=== PATIENT | female | born 1965 | race Caucasian/White ===

== ENCOUNTER 2021-03-29 08:02 | Day surgery (SDC) | payer OTHER ==
[2021-03-29] MEDS ORDERED: Ringers Lactate 1,000 ML IV ONE ×2 (08:18→08:46)
[2021-03-29] MEDS ORDERED: CEFAZOLIN/NS 1gm 1 GM/50 ML BAG ONE (08:18)
[2021-03-29] MEDS ORDERED: SCOPOLAMINE HYDROBROMIDE PATCH TD ONE ×2 (08:18→08:35)
[2021-03-29 08:20] LABS: Urine Appearance TURBID (Clear); Urine Bilirubin NEGATIVE (Negative); Urine Blood NEGATIVE (Negative); Urine Color YELLOW (Yellow); Urine Glucose NEGATIVE (Negative); Urine Microscopic Reflex ORDER UMIC; Urine Protein NEGATIVE (Negative); Urine Specific Gravity 1.015 (1.005-1.030); Urine Urobilinogen 0.2 mg/dL (0.2-1.0)
[2021-03-29 08:20] LABS: Absolute Lymphocytes (CBC) 2.2 K/uL (0.7-4.9); Hematocrit 40.6 % (36.0-45.0); Lymphocytes % 30.6 % (15.3-44.8); MPV 6.9 fL (7.6-11.3); RBC Red Blood Cell Count 4.66 M/uL (3.86-4.86)
[2021-03-29 08:26] LABS: Urine Amorphous Sediment 2+ /HPF (NONE SEEN); Urine Bacteria NONE SEEN /HPF (<20); Urine RBC NONE SEEN /HPF (NONE SEEN)
[2021-03-29] MEDS ORDERED: CELECOXIB 100 MG CAPSULE ONE (08:29)
[2021-03-29] MEDS ORDERED: ACETAMINOPHEN 500 MG TAB ONE (08:29)
[2021-03-29] MEDS ORDERED: ACETAMINOPHEN 500 MG TAB PO ONE (08:35)
[2021-03-29] MEDS ORDERED: CELECOXIB 100 MG CAPSULE PO ONE (08:35)
[2021-03-29] MEDS ORDERED: propofoL 200 MG/20 ML VIAL IV ONE (08:38)
[2021-03-29] MEDS ORDERED: MIDAZOLAM HCL 2 MG/2 ML INJ ONE (08:38)
[2021-03-29] MEDS ORDERED: VECURONIUM 10 MG/VIAL IV ONE ×2 (08:38→11:40)
[2021-03-29] MEDS ORDERED: FENTANYL CITR 250 MCG/5 ML ONE ×2 (08:38→13:11)
[2021-03-29] MEDS ORDERED: NS 0.9% VIAL 0 ML ONE (08:38)
[2021-03-29] MEDS ORDERED: LIDOCAINE 1% MPF 5 ML VIAL ONE (08:38)
[2021-03-29] MEDS ORDERED: ONDANSETRON 4 MG/2 ML VIAL ONE ×2 (08:38→16:06)
[2021-03-29] MEDS ORDERED: dexAMETHasone 10 MG/ML VIAL ONE (08:38)
[2021-03-29] MEDS ORDERED: GENTAMICIN SULF 80 MG/2ML INJ ONE (08:45)
[2021-03-29] MEDS ORDERED: CEFAZOLIN SODIUM 1 GM/VIAL ONE (08:45)
[2021-03-29] MEDS ORDERED: NS 0.9% VIAL 40 ML ONE (08:45)
[2021-03-29] MEDS ORDERED: Mastisol Adhesive Liq ONE ×2 (08:46→15:53)
[2021-03-29] MEDS ORDERED: LIDOCAINE 1% W/EPI 1:100,000 MDV 20 ML VIAL ONE (08:46)
--- NOTE | 2021-03-29 09:27 | RAD REPORT ---
EXAM DESCRIPTION: RAD - Chest Pa And Lat (2 Views) - 03/29/2021 8:04 am CLINICAL HISTORY: Pre op pending breast lift Chest pain. COMPARISON: No comparisons FINDINGS: The lungs are clear. The heart is normal in size. No displaced fractures. IMPRESSION: No acute or concerning finding suspected.
[2021-03-29] MEDS ORDERED: LANO/MINERAL OIL/PETRO 3.5 GM ONE (09:45)
[2021-03-29] MEDS: Ringers Lactate 1,000 ML IV ONE ×2 (11:04→11:24)
[2021-03-29] MEDS ORDERED: NA CHLORIDE 0.9% 1,000 ML ONE (12:55)
[2021-03-29] MEDS ORDERED: EPINEPHRINE/PF 1 MG/ML AMP ONE (12:55)
[2021-03-29] MEDS ORDERED: NEOSTIGMINE 1 MG/ML -5 ML ONE (16:06)
[2021-03-29] MEDS ORDERED: GLYCOPYRROLATE 0.2 MG/ML SYR ONE (16:06)
[2021-03-29] MEDS ORDERED: KETOROLAC 30 MG/ML INJ ONE (16:06)
[2021-03-29] MEDS ORDERED: CODEINE 30MG/APAP 300MG TAB PO ONE (17:30)
[2021-03-29] MEDS ORDERED: CODEINE 30MG/APAP 300MG TAB ONE (17:32)
[2021-03-29 18:53] VITALS: BP 150/61; TEMP 98; O2SAT 100
--- NOTE | 2021-03-30 07:49 | EKG ---
Test Date: 2021-03-29 Test Time: 07:47:21 Asphalt Blender: CATALINA MEASUREMENT RESULTS: Intervals: Rate: 69 OR: 150 QRSD: 82 QT: 392 QTc: 420 [place]brook: P: 27 OR: 150 QRS: 2 T: 32 INTERPRETIVE STATEMENTS: Normal sinus rhythm Low voltage QRS Borderline ECG No previous ECG available for comparison Electronically Signed On 03-30-21 07:45:51 BARGE WORKER by Tay Olguin
--- NOTE | 2021-03-30 12:53 | OP ---
Surgeon: Boy Flores MD Retread Mold Operator: James. 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 Procedure Performed: Breast lift and with transverse brachioplasty. Anesthesia: General. Procedure In Detail: After satisfactory general anesthesia, DuraPrep was used to prep the chest, dry sterile drapes applied in the usual manner. A 5 cm template was used to outline the right and left areola. Then, transverse curvilinear incisions were made. Intervening skin was de-epithelialized wi th dermabrader. Transverse incision was made 1.5 cm thickness, elevated towards the jackson um, clavicle, anterior axillary line. Then, the inferior incision was made. The after ex cess tissue lateral was removed and conization was performed with 2-0 PDS suture interrupted. Then, the straps were elevated from 12 o'clock, 1:30 and 3 o'clock positions on the right breast. The stra ps were then woven in and out the pectoralis muscle back to base of the cone, back to pectoral muscle , back to base of cone, tied themselves with 2-0 PDS suture. This was done for the 12 o'clock, 1:30 strap, 3 o'clock strap was sewn with sternum at 3 o'clock position with 2-0 Ethibond. The wound was stapled shut. Left side was done in identical manner. We then returned on the right side, irrigated the wound with antibiotic solution. 10 ISRA was brought out of the axilla, sewn in place with 2-0 jasen k and dog ears were marked mediolaterally and resected and wound was closed with 3-0 Vicryl subcu, 3- 0 PDS running subcuticular, tied in the vertical meridian of the breast. This was done in the identi calixto manner. We then sat the patient upside. Site for new nipple-areolar complex was marked out. Ti ssue was cored out, nipple-areolar complex delivered, sewn with interrupted 4-0 PDS followed by 4-0 P DS running subcuticular. Tincture of benzoin and Steri-Strips were applied. Attention was then turn ed to the arm. Then prepped circumferentially with DuraPrep. Then, stockinette was applied and dry sterile drapes in usual manner. A transverse incision made near the elbow between the ant erior surface and the ulnar with 450 cc. After this was done, left side right side, aspirated with a 4 mm cannula on the left. These wounds were then closed with 4-0 P DS sutures and then, the elliptical incisions were made partial-thickness and then dermal was elevated from the lateral incision approximately 2 cm long fascia. The excess fat was excised and then, the dermal strap was removed through the and sewn to itself with 2-0 PD S suture. Then, the wound was closed after 7 ISRA was brought out of the axilla, sewn in place with 2- 0 silk 3-0 Vicryl subcu and then 3-0 PDS running locking. This was done after 4-0 Prolene vertical mattress were placed overlying the center of the wound, where the straps origina daniella from. Dressings consisted of 4x4s, tape, and then fluffs, and Navneet wrap. The patient tolerated the procedure well. The amount of breast removed from the right side was 254, left side 18 2. GH/MODL Voice ID: [id number] Report ID: [id number]
--- NOTE | 2021-03-30 12:53 | HP ---
Date of Admission: 03/29/2021 History Of Present Illness: 55-year-old white female, who requested brachioplasty and andi ast lift. She has no family history of breast cancer. Previous surgery has been __ gallbladder. Past Medical History: No medical problems. Social History: Does not smoke. Drinks alcohol rarely. Allergies: NO ALLERGIES. Medications: See her list. Physical Examination: She is 5 feet 8 inches, 180 pounds. Physical exam is unremarkable except for breast enlargement and hanging skin of the arms brachioplasty and breast lift. COSTA/RAJEEV Voice ID: [id number]
== END 2021-03-29 18:15 | disposition home or self-care (01) ==
LOC: OR 08:02
PROVIDERS: ATTEND Specialist
PROC: 0HSV0ZZ Reposition Bilateral Breast, Open Approach (ICD-10-PCS; 2021-03-29)
PROC: 0J0F0ZZ Alteration of Left Upper Arm Subcutaneous Tissue and Fascia, Open Approach (ICD-10-PCS; principal; 2021-03-29 09:00)
PROC: 0J0D0ZZ Alteration of Right Upper Arm Subcutaneous Tissue and Fascia, Open Approach (ICD-10-PCS; 2021-03-29 09:00)
DX: N64.81 Ptosis of breast (principal); L98.7 Excessive and redundant skin and subcutaneous tissue
CPT/HCPCS: 93005; 85025; 36415; 88300; 88305; 71046; 15836; 19316; J2704; J0171; J1580; J2250; J3010 ×2; J1100; J2710; J0690 ×2; J7120 ×3; J7030; J2405 ×2; 81003; 81015